=== PATIENT | male | born 1960 | race Caucasian/White ===

== ENCOUNTER 2017-12-27 13:21 | Emergency (ER) | payer MEDICAID ==
[~2017-12-27] VITALS: Ht 175.3 cm; Wt 67.8 kg
[~2017-12-27 13:21] MED LIST: HYDR-4353 PO; INSU100V36 SQ; LANTUS SUBCUT; METH-603 PO
[2017-12-27 14:25] LABS: INR 1.1 INR; PROTHROMBIN TIME 11.1 SECONDS (9.0-12.0)
[2017-12-27 14:32] LABS: ALANINE AMINOTRANSFERASE 176 U/L (12-78); ALBUMIN 3.4 G/DL (3.4-5.0); ALBUMIN/GLOBULIN RATIO 0.9 (1.1-1.5); ALKALINE PHOSPHATASE 235 IU/L (46-116); ANION GAP 12 (8-16); ASPARTATE AMINO TRANSFERASE 80 U/L (10-37); BILIRUBIN,TOTAL 0.4 MG/DL (0.1-1.0); BLOOD UREA NITROGEN 15 MG/DL (7-18); BUN/CREATININE RATIO 9.8 (5.4-32.0); CHLORIDE 91 MMOL/L (99-107); CREATININE 1.53 MG/DL (0.60-1.10); POTASSIUM 5.1 MMOL/L (3.5-5.1); SODIUM 127 MMOL/L (135-145); TOTAL PROTEIN 7.2 G/DL (6.4-8.2); eGFR 47 ML/MIN
[2017-12-27 14:38] LABS: BASOPHILS # (AUTO) 0.1 X10'3 (0-0.2); BASOPHILS % (AUTO) 0.9 % (0-1); EOSINOPHILS # (AUTO) 0.1 X10'3 (0-0.9); EOSINOPHILS % (AUTO) 1.6 % (0-6); HEMATOCRIT 37.8 % (42.0-52.0); HEMOGLOBIN 12.7 g/dl (14.0-17.9); LYMPHOCYTES # (AUTO) 1.8 X10'3 (1.1-4.8); LYMPHOCYTES % (AUTO) 24.9 % (21-51); MEAN CORPUSCULAR HEMOGLOBIN 32.2 PG (27.0-31.0); MEAN CORPUSCULAR HGB CONC 33.6 % (33.0-36.5); MEAN CORPUSCULAR VOLUME 95.8 FL (78-98); MEAN PLATELET VOLUME 9.8 FL (7.4-10.4); MONOCYTES # (AUTO) 0.6 X10'3 (0-0.9); MONOCYTES % (AUTO) 8.4 % (2-12); NEUTROPHILS # (AUTO) 4.5 X10'3 (1.8-7.7); NEUTROPHILS % (AUTO) 64.2 % (42-75); PLATELET COUNT 300 X10'3 (140-440); RED BLOOD COUNT 3.94 X10'6 (4.70-6.10); RED CELL DISTRIBUTION WIDTH 13.4 % (11.5-14.5)
[2017-12-27 14:46] LABS: GLUCOSE 912 MG/DL (70-104)
[2017-12-27] MEDS ORDERED: insulin regular, human 10 units/0.1 ml syringe IV ONE (15:10)
[2017-12-27] MEDS ORDERED: normal saline 1000ML IV soln IV ONE (15:10)
[2017-12-27 17:07] LABS: CLARITY,URINE CLEAR (Clear); COLOR,URINE YELLOW (Yellow); GLUCOSE, URINE >=1000 mg/dl (Neg); KETONES,URINE NEGATIVE (Neg); LEUKOCYTE ESTERASE ,URINE NEGATIVE (Neg); NITRITES, URINE NEGATIVE (Neg); OCCULT BLOOD,URINE TRACE-INTACT (Neg); PROTEIN,URINE 30 mg/dl (Neg); UROBILINOGEN,URINE 0.2 E.U/dL (0.2-1.0)
[2017-12-27 17:09] LABS: UA COLLECTION TYPE CLN CATCH MIDSTREAM
[2017-12-27 17:33] LABS: BACTERIA,URINE NONE SEEN /HPF (Neg); RBC,URINE 0-2 /HPF (0-2); SQUAMOUS EPITHELIAL CELL,UR NONE SEEN /LPF (FEW); WBC,URINE NONE SEEN /HPF (0-4)
[2017-12-27] MEDS ORDERED: insulin glargine (Lantus) pen - multi-dose SQ ONE (18:35)
[2017-12-27] MEDS ORDERED: metFORMIN 500mg tablet PO ONE (18:35)
[2017-12-27] MEDS ORDERED: INSU100V11 SQ (18:36)
[2017-12-27] MEDS ORDERED: LANTUS SQ (18:36)
[2017-12-27] MEDS ORDERED: METF500T PO (18:36)
[2017-12-27 18:58] VITALS: BP 149/85
== END 2017-12-27 19:07 | disposition left against medical advice (07) ==
LOC: ER 13:22
DX: E11.00 Type 2 diabetes mellitus with hyperosmolarity without nonketotic hyperglycemic-hyperosmolar coma (NKHHC) (principal); E11.65 Type 2 diabetes mellitus with hyperglycemia; E86.0 Dehydration; I10 Essential (primary) hypertension; F11.90 Opioid use, unspecified, uncomplicated; Z56.0 Unemployment, unspecified; Z79.4 Long term (current) use of insulin
CPT/HCPCS: 36415; 71045; 80053; 81001; 82948; 85025; 85610; 93005; 96361; 96372; 96374; 99284; J1815; J7030